=== PATIENT | male | born 1985 | race Two or more races ===

== ENCOUNTER → 2017-06-02 | Outpatient (CLI) | payer OTHER ==
[2017-06-02 09:58] LABS: BASOPHIL % 0.5 % (0-2); PLATELET COUNT 241 x10^3mcL (130-400); RED CELL DISTRIBUTION WIDTH 12.9 % (11.5-14.5)
[2017-06-02 10:21] LABS: ALBUMIN 4.4 g/dL (3.4-5.0); ALKALINE PHOSPHATASE 97 U/L (46-116); ALT/SGPT 54 U/L (16-63); AST/SGOT 36 U/L (15-37); BILIRUBIN DIRECT 0.19 mg/dL (0.0-0.2); BILIRUBIN TOTAL 0.8 mg/dL (0.20-1.00); CALCIUM 8.8 mg/dL (8.5-10.1); CARBON DIOXIDE 26.7 mmol/L (21-32); CHLORIDE SERUM 105 mmol/L (98-107); CHOLESTEROL 156 mg/dL (<200); CHOLESTEROL/HDL RATIO 3.1; CREATININE SERUM 1.2 mg/dL (0.7-1.3); GFR1 > 60 mL/min; GLUCOSE SERUM 97 mg/dL (74-106); HDL CHOLESTEROL 50 mg/dL (40-60); POTASSIUM SERUM 3.8 mmol/L (3.5-5.1); SODIUM SERUM 135 mmol/L (136-145); TRIGLYCERIDES 81 mg/dL (<150)
== END | disposition home or self-care (01) ==
LOC: LB 09:25
PROVIDERS: Internal Medicine
DX: Z00.00 Encounter for general adult medical examination without abnormal findings (principal)

== ENCOUNTER → 2017-06-23 | Outpatient (CLI) | payer OTHER ==
[2017-06-23 10:20] LABS: IRON 123 ug/dL (65-170); TOTAL IRON BINDING CAPACITY 336 ug/dL (250-450)
[2017-06-23 10:21] LABS: BASOPHIL % 0.9 % (0-2); PLATELET COUNT 225 x10^3mcL (130-400); RED BLOOD CELLS 5.32 M/mm3 (4.52-5.90); RED CELL DISTRIBUTION WIDTH 12.6 % (11.5-14.5)
[2017-06-23 10:29] LABS: T3 TOTAL 1.18 ng/mL
[2017-06-23 10:31] LABS: FREE T4 0.95 ng/dL (0.76-1.46); FREE THYROXINE INDEX 3.6 ug/dL (1.4-4.5); T4(THYROXINE) 8.1 ug/dL (4.7-13.3)
== END | disposition home or self-care (01) ==
LOC: LB 09:24
PROVIDERS: Internal Medicine
DX: E03.9 Hypothyroidism, unspecified (principal); E55.9 Vitamin D deficiency, unspecified; D64.9 Anemia, unspecified
CPT/HCPCS: 84403; 84439

== ENCOUNTER → 2018-06-15 | Outpatient (CLI) | payer OTHER ==
[2018-06-15 09:52] LABS: CALCIUM 8.8 mg/dL (8.5-10.1); CHLORIDE SERUM 104 mmol/L (98-107); CREATININE SERUM 1.2 mg/dL (0.7-1.3); GFR1 > 60 mL/min; GLUCOSE SERUM 96 mg/dL (74-106); POTASSIUM SERUM 4.2 mmol/L (3.5-5.1); SODIUM SERUM 138 mmol/L (136-145)
== END | disposition home or self-care (01) ==
LOC: LB 08:27
PROC: BT43ZZZ Ultrasonography of Bilateral Kidneys (ICD-10-PCS; principal; 2018-06-15)
DX: N18.9 Chronic kidney disease, unspecified (principal)

== ENCOUNTER → 2018-07-06 | Outpatient (CLI) | payer OTHER | END | disposition home or self-care (01) | LOC: CT 08:45 | PROC: BW28ZZZ Computerized Tomography (CT Scan) of Head (ICD-10-PCS; principal; 2018-07-06) | DX: R51 Headache (principal) ==

== ENCOUNTER → 2018-07-26 | Outpatient (CLI) | payer OTHER ==
[2018-07-26 10:10] LABS: CARBON DIOXIDE 28.4 mmol/L (21-32); CHLORIDE SERUM 102 mmol/L (98-107); CHOLESTEROL 169 mg/dL (<200); CHOLESTEROL/HDL RATIO 3.3; CREATININE SERUM 1.1 mg/dL (0.7-1.3); GFR1 > 60 mL/min; GLUCOSE SERUM 91 mg/dL (74-106); HDL CHOLESTEROL 51 mg/dL (40-60); SODIUM SERUM 138 mmol/L (136-145); TRIGLYCERIDES 37 mg/dL (<150)
== END | disposition home or self-care (01) ==
LOC: LB 09:01
DX: N28.9 Disorder of kidney and ureter, unspecified (principal); E78.5 Hyperlipidemia, unspecified

== ENCOUNTER → 2018-11-01 | Outpatient (CLI) | payer OTHER ==
[2018-11-01 10:15] LABS: PLATELET COUNT 226 x10^3mcL (130-400); RED CELL DISTRIBUTION WIDTH 13.2 % (11.5-14.5)
[2018-11-01 10:36] LABS: ALBUMIN 4.1 g/dL (3.4-5.0); ALKALINE PHOSPHATASE 94 U/L (46-116); ALT/SGPT 50 U/L (16-63); AST/SGOT 25 U/L (15-37); BILIRUBIN TOTAL 0.5 mg/dL (0.20-1.00); CALCIUM 8.9 mg/dL (8.5-10.1); CARBON DIOXIDE 28.6 mmol/L (21-32); CHLORIDE SERUM 103 mmol/L (98-107); CHOLESTEROL 181 mg/dL (<200); CHOLESTEROL/HDL RATIO 3.4; CREATININE SERUM 1.1 mg/dL (0.7-1.3); GFR1 > 60 mL/min; GLUCOSE SERUM 103 mg/dL (74-106); HDL CHOLESTEROL 54 mg/dL (40-60); POTASSIUM SERUM 4.3 mmol/L (3.5-5.1); SODIUM SERUM 139 mmol/L (136-145); TOTAL PROTEIN, SERUM 7.9 g/dL (6.4-8.2); TRIGLYCERIDES 71 mg/dL (<150)
== END | disposition home or self-care (01) ==
LOC: LB 09:44
DX: D70.9 Neutropenia, unspecified (principal)
CPT/HCPCS: 84403

== ENCOUNTER → 2018-11-15 | Outpatient (CLI) | payer OTHER | END | disposition home or self-care (01) | LOC: US 08:56 | PROC: BT43ZZZ Ultrasonography of Bilateral Kidneys (ICD-10-PCS; principal; 2018-11-15) | DX: N20.0 Calculus of kidney (principal) ==

== ENCOUNTER 2019-08-17 03:29 | Emergency (ER) | payer OTHER ==
[~2019-08-17] VITALS: Ht 180.3 cm; Wt 77.1 kg
[2019-08-17 03:34] VITALS: Ht 180.3 cm; Wt 77.1 kg
[2019-08-17 04:30] VITALS: BP 136/73
== END 2019-08-17 04:30 | disposition home or self-care (01) ==
LOC: ED 03:29
DX: J02.9 Acute pharyngitis, unspecified (principal)
CPT/HCPCS: J1100; J1885

== ENCOUNTER → 2019-10-02 | Outpatient (CLI) | payer OTHER ==
[2019-10-02 10:13] LABS: CARBON DIOXIDE 29.9 mmol/L (21-32); CHLORIDE SERUM 102 mmol/L (98-107); POTASSIUM SERUM 4.5 mmol/L (3.5-5.1); SODIUM SERUM 139 mmol/L (136-145)
[2019-10-02 10:30] LABS: ALBUMIN 4.5 g/dL (3.4-5.0); ALKALINE PHOSPHATASE 108 U/L (46-116); ALT/SGPT 44 U/L (16-63); AST/SGOT 22 U/L (15-37); BILIRUBIN TOTAL 0.73 mg/dL (0.20-1.00); CALCIUM 9.1 mg/dL (8.5-10.1); CREATININE SERUM 1.1 mg/dL (0.7-1.3); GFR1 > 60 mL/min; GLUCOSE SERUM 97 mg/dL (74-106); TOTAL PROTEIN, SERUM 8.2 g/dL (6.4-8.2)
[2019-10-02 10:46] LABS: BASOPHIL % 0.7 % (0-2); PLATELET COUNT 209 x10^3mcL (130-400); RED CELL DISTRIBUTION WIDTH 13.2 % (11.5-14.5)
[2019-10-02 11:09] LABS: TRIGLYCERIDES 86 mg/dL (<150)
[2019-10-02 11:39] LABS: CHOLESTEROL 191 mg/dL (<200)
[2019-10-02 13:21] LABS: HDL CHOLESTEROL 48 mg/dL (40-60)
[2019-10-03 05:08] LABS: RAPID PLASMA REAGIN Non Reactive (Non Reactive)
== END | disposition home or self-care (01) ==
LOC: LB 09:25
PROVIDERS: Urology
DX: N18.9 Chronic kidney disease, unspecified (principal)
CPT/HCPCS: 87491; 87591

== ENCOUNTER 2020-12-31 15:12 | Emergency (ER) | payer OTHER ==
[~2020-12-31] VITALS: Ht 177.8 cm; Wt 65.8 kg
[2020-12-31 15:20] VITALS: Ht 177.8 cm; Wt 65.8 kg
[2020-12-31 18:22] VITALS: BP 117/84
== END 2020-12-31 18:23 | disposition home or self-care (01) ==
LOC: ED 15:12
DX: S90.851A Superficial foreign body, right foot, initial encounter (principal); W45.8XXA Other foreign body or object entering through skin, initial encounter; Y93.89 Activity, other specified; Y92.89 Other specified places as the place of occurrence of the external cause; Y99.8 Other external cause status
CPT/HCPCS: J2001

== ENCOUNTER 2021-01-02 13:07 | Emergency (ER) | payer OTHER ==
[~2021-01-02] VITALS: Ht 180.3 cm; Wt 79.8 kg
[2021-01-02 13:15] VITALS: BP 121/69; Ht 180.3 cm; Wt 79.8 kg
== END 2021-01-02 14:18 | disposition home or self-care (01) ==
LOC: ED 13:07
DX: L03.115 Cellulitis of right lower limb (principal); W45.8XXA Other foreign body or object entering through skin, initial encounter; Y93.89 Activity, other specified; Y92.89 Other specified places as the place of occurrence of the external cause; Y99.8 Other external cause status
CPT/HCPCS: 90715; J0696

== ENCOUNTER 2021-01-07 16:43 | Emergency (ER) | payer OTHER ==
[~2021-01-07] VITALS: Ht 180.3 cm; Wt 79.8 kg
[2021-01-07 17:23] VITALS: BP 121/60; Ht 180.3 cm; Wt 79.8 kg
== END 2021-01-07 18:11 | disposition home or self-care (01) ==
LOC: ED 16:43
DX: S90.852D Superficial foreign body, left foot, subsequent encounter (principal); W45.8XXD Other foreign body or object entering through skin, subsequent encounter

== ENCOUNTER 2021-01-11 11:05 | Emergency (ER) | payer OTHER ==
[~2021-01-11] VITALS: Ht 180.3 cm; Wt 81.2 kg
[2021-01-11 11:12] VITALS: BP 110/68; Ht 180.3 cm; Wt 81.2 kg
== END 2021-01-11 11:44 | disposition home or self-care (01) ==
LOC: ED 11:05
DX: S91.311D Laceration without foreign body, right foot, subsequent encounter (principal); W22.8XXD Striking against or struck by other objects, subsequent encounter